=== PATIENT | male | born 1975 | race Two or more races ===

== ENCOUNTER 2016-08-10 09:45 | Inpatient (IN) | payer OTHER ==
[2016-08-10 10:54] VITALS: BMI 34.0
--- NOTE | 2016-08-10 12:49 | HP ---
CIWA Score - CIWA Score Nausea/Vomitin Muscle Tremors: 3 Anxiety: 3 Agitation: 3 Paroxysmal Sweats: 2 Orientation: 0-Oriented Tacttile Disturbances: 2-Mild Itch/Numbness/Burn Auditory Disturbances: 2-Mild Harshness/Frighten Visual Disturbances: 2-Mild Sensitivity Headache: 2-Mild CIWA-Ar Total Score: 22 Admission ROS BHS - HPI Chief Complaint: I NEED HELP TO STOP DRINKING ALCOHOL Allergies/Adverse Reactions: Allergies Allergy/AdvReac Type Severity Reaction Status Date / Time No Known Allergies Allergy Verified 08/10/16 10:28 History of Present Illness: THIS 41 YEARS OLD MALE WITH ALCOHOL DEPENDENCE,WITHDRAWAL SYMPTOM,MMTP 150 MGS/ DAY,LAST MEDICATED TODAY, SYNCOPE ALCOHOL RELATED BIPOLAR DISORDER NO SIGNIFICANT PERIOD OF SOBRIETY Exam Limitations: No Limitations - Ebola screening Have you traveled outside of the country in the last 21 days: No Have you had contact with anyone from an Ebola affected area: No Have you been sick,other than usual withdrawal symptoms: No - Review of Systems Constitutional: Chills, Diaphoresis, Loss of Appetite, Malaise, Night Sweats, Changes in sleep, Weakness EENT: reports: Nose Congestion Respiratory: reports: No Symptoms reported Cardiac: reports: No Symptoms Reported GI: reports: Diarrhea, Nausea, Vomiting, Abdominal cramping : reports: No Symptoms Reported Musculoskeletal: reports: Back Pain, Muscle Pain Integumentary: reports: Dryness Neuro: reports: Headache, Tremors Endocrine: reports: No Symptoms Reported Hematology: reports: No Symptoms Reported Psychiatric: reports: Judgement Intact, Mood/Affect Appropiate, Orientated x3, other (BIPOLAR DISODER) Patient History - Patient Medical History Hx Anemia: No Hx Asthma: No Hx Chronic Obstructive Pulmonary Disease (COPD): No Hx Cancer: Yes (non hogkins lymphoma/in recession) Hx Cardiac Disorders: No Hx Congestive Heart Failure: No Hx Hypertension: No Hx Hypercholesterolemia: No Hx Pacemaker: No HX Cerebrovascular Accident: No Hx Seizures: No Hx Dementia: No Hx Diabetes: No Hx Gastrointestinal Disorders: Yes (acid reflux) Hx Liver Disease: No Hx Genitourinary Disorders: No Hx Sexually Transmitted Disorders: No Hx Renal Disease (ESRD): No Hx Thyroid Disease: No Hx Human Immunodeficiency Virus (HIV): No (2016 NEGATIVE) Hx Hepatitis C: Yes (FOLLOW UP WITH PMD AT [place]) Hx Depression: Yes Hx Suicide Attempt: No Hx Bipolar Disorder: Yes Hx Schizophrenia: No Other Medical History: NO SUICIDAL,NO HOMICIDAL - Patient Surgical History Past Surgical History: Yes Hx Neurologic Surgery: No Hx Cataract Extraction: No Hx Cardiac Surgery: No Hx Lung Surgery: No Hx Breast Surgery: No Hx Breast Biopsy: No Hx Abdominal Surgery: No Hx Appendectomy: No Hx Cholecystectomy: No Hx Genitourinary Surgery: No Hx Section: No Hx Orthopedic Surgery: No Hx Hysterectomy: No Other Surgical History: rt neck lymph node bx. Anesthesia Reaction: No - PPD History Previous Implant?: Yes Documented Results: Negative w/proof Implanted On Prior [facility] Admission?: Yes Date: 05/09/16 Results: 0 mm PPD to be Administered?: No - Smoking Cessation Smoking history: Current every day smoker Have you smoked in the past 12 months: Yes Aproximately how many cigarettes per day: 20 Hx Chewing Tobacco Use: No Initiated information on smoking cessation: Yes 'Breaking Loose' booklet given: 08/10/16 - Substance & Tx. History Hx Alcohol Use: Yes Hx Substance Use: No Substance Use Type: Alcohol Hx Substance Use Treatment: Yes ([facility] 05/07/16 TO 05/11/16) - Substances Abused Alcohol-beer/vodka Route: Oral Frequency: Daily Amount used: 1 case/1/2 liter Age of first use: 10 Date of Last Use: 08/10/16 Family Disease History - Family Disease History Family Disease History: Diabetes: Mother (breast), CA: Mother, Other: Father ( murdered ) Admission Physical Exam S - Vital Signs Vital Signs: Vital Signs - 24 hr 08/10/16 10:39 Temperature 97 F L Pulse Rate 88 Respiratory 20 Rate Blood Pressure 106/73 - Physical General Appearance: Yes: Moderate Distress, Tremorous, Irritable, Sweating, Anxious HEENTM: Yes: Normal ENT Inspection, Normocephalic, Pharynx Normal, Nasal Congestion Respiratory: Yes: Lungs Clear, Normal Breath Sounds, No Respiratory Distress Neck: Yes: Within Normal Limits, Supple, Trachea in good position Breast: Yes: Within Normal Limits Cardiology: Yes: Within Normal Limits, Regular Rhythm, Regular Rate, S1, S2 Abdominal: Yes: Within Normal Limits, Normal Bowel Sounds, Non Tender, Flat, Soft Genitourinary: Yes: Within Normal Limits Back: Yes: Normal Inspection, Muscle Spasm Musculoskeletal: Yes: Back pain, Muscle Pain Extremities: Yes: Within Normal Limits, Normal Range of Motion, Tremors Neurological: Yes: Within Normal Limits, barker operator II-XII NML intact, Fully Oriented, Alert, Motor Strength 5/5 Integumentary: Yes: Dry Lymphatic: Yes: Within Normal Limits - Diagnostic (1) Nicotine dependence Current Visit: No Status: Acute Qualifiers: Nicotine product type: cigarettes Substance use status: uncomplicated Qualified Code(s): F17.210 - Nicotine dependence, cigarettes, uncomplicated (2) Alcohol dependence with uncomplicated withdrawal Current Visit: No Status: Chronic (3) Methadone maintenance therapy patient Current Visit: No Status: Chronic Comment: pending verification. last dose taken today with 160mg. (4) Bipolar disorder Current Visit: No Status: Suspected Comment: Historical diagnosis. (5) Hepatitis C Current Visit: Yes Status: Acute (6) Hodgkin lymphoma Current Visit: Yes Status: Acute Cleared for Admission [facility] - Detox or Rehab [facility] Level of Care: Medically Managed Detox Regimen/Protocol: Librium [facility] Breath Alcohol Content Breath Alcohol Content: 0.144 Urine Drug Screen - Results Drug Screen Negative: No Urine Drug Screen Results: BZO-Benzodiazepines, MTD-Methadone
[2016-08-10] MEDS ORDERED: MAGNESIUM CITRATE 300 ML BOTTLE PO PRN (13:02)
[2016-08-10] MEDS ORDERED: P-EPHED 60MG/TRIPROLIDI 2.5MG TABLET PO PRN (13:02)
[2016-08-10] MEDS ORDERED: IBUPROFEN 400 MG TABLET (FP) PO PRN (13:02)
[2016-08-10] MEDS ORDERED: hydrOXYzine PAMOATE 50 MG CAPSULE (FP) PO PRN (13:02)
[2016-08-10] MEDS ORDERED: chlordiazePOXIDE HCL 25 MG CAPSULE PO PRN (13:02)
[2016-08-10] MEDS ORDERED: guaiFENesin/D-METHORPHAN HB 10 ML UNIT-DOSE CUPS PO PRN (13:02)
[2016-08-10] MEDS ORDERED: MAGNESIUM HYDROX 2400MG/30ML ORAL SUSPENSION 30 ML CUP PO PRN (13:02)
[2016-08-10] MEDS ORDERED: MENTHOL/PHENOL 1 EACH UD MM PRN (13:02)
[2016-08-10] MEDS ORDERED: LOPERAMIDE HCL 2 MG CAPSULE PO PRN (13:02)
[2016-08-10] MEDS ORDERED: ACETAMINOPHEN 325 MG TABLET (FP) PO PRN (13:02)
[2016-08-10] MEDS ORDERED: chlordiazePOXIDE HCL 25 MG CAPSULE PO ONE (13:48)
[2016-08-10] MEDS: NICOTINE 21 MG/24 HOURS TOPICAL PATCH TD SCH (15:10)
[2016-08-10] MEDS: chlordiazePOXIDE HCL 25 MG CAPSULE PO SCH ×2 (17:28→22:30)
[2016-08-10] MEDS: MAG HYDROX/AL HYDROX/SIMETH 30 ML UNIT-DOSE CUP PO PRN (17:48)
[2016-08-10 20:12] LABS: URINE APPEARANCE CLEAR; URINE BILIRUBIN NEGATIVE (NEGATIVE); URINE BLOOD NEGATIVE (NEGATIVE); URINE COLOR STRAW; URINE GLUCOSE (UA) NEGATIVE (NEGATIVE); URINE KETONE NEGATIVE (NEGATIVE); URINE LEUK ESTERASE NEGATIVE (NEGATIVE); URINE NITRITE NEGATIVE (NEGATIVE); URINE PROTEIN NEGATIVE (NEGATIVE); URINE UROBILINOGEN NEGATIVE E.U./dl (0.2-1.0)
[2016-08-10] MEDS: THIAMINE HCL 100 MG TABLET (FP) PO SCH (22:29)
[2016-08-10] MEDS: diphenhydrAMINE HCL 50 MG CAPSULE PO PRN (22:30)
[2016-08-10] MEDS: RANITIDINE HCL 150 MG TABLET (FP) PO SCH (22:30)
[2016-08-11] MEDS ORDERED: METHADONE HCL 10 MG TABLET ONE (04:04)
[2016-08-11] MEDS ORDERED: METHADONE HCL 40 MG DISPERSABLE TABLET ONE (04:06)
[2016-08-11] MEDS: chlordiazePOXIDE HCL 25 MG CAPSULE PO SCH ×4 (05:23→22:47)
[2016-08-11] MEDS: METHADONE 120 MG, METHADONE 30 MG PO SCH (05:24)
[2016-08-11] MEDS ORDERED: METHADONE HCL 10 MG TABLET PO SCH (06:00)
[2016-08-11] MEDS: RANITIDINE HCL 150 MG TABLET (FP) PO SCH ×2 (10:35→22:46)
[2016-08-11] MEDS: PRENATAL VITAMINS W/ FOLIC ACID TABLET (FP) PO SCH (10:35)
[2016-08-11] MEDS: NICOTINE 21 MG/24 HOURS TOPICAL PATCH TD SCH (10:35)
[2016-08-11 10:42] LABS: MCH 33.7 pg (25.7-33.7); MCHC 32.7 g/dl (32.0-35.9); MEAN CELL VOLUME 102.9 fl (80-96); MEAN PLT VOLUME 9.1 fl (7.5-11.1); PLATELET COUNT 163 K/MM3 (134-434); RDW 16.7 % (11.9-15.9)
[2016-08-11 11:58] LABS: ALBUMIN 3.6 g/dl (3.4-5.0); ANION GAP 11 (8-16); CALCIUM 8.2 mg/dL (8.5-10.1); CO2 29 mmol/L (21-32); CREATININE 0.7 mg/dL (0.7-1.3); GLUCOSE,RANDOM 119 mg/dL (74-106); SGOT/AST 168 U/L (15-37); SGPT/ALT 76 U/L (12-78)
[2016-08-11 12:00] LABS: ALK PHOS 171 U/L (45-117); BILIRUBIN,TOTAL 0.9 mg/dL (0.2-1.0); TOT PROT 7.7 g/dl (6.4-8.2)
[2016-08-11] MEDS: CEPHALEXIN MONOHYDRATE 500 MG CAPSULE (UD) PO SCH ×3 (12:38→23:35)
--- NOTE | 2016-08-11 13:24 | CONSULT ---
[facility] Psychiatric Consult - Data Date of interview: 08/11/16 Admission source: [facility] Identifying data: Another admission to [facility] for this 41 y/o [place] male seeking detox treatment on for alcohol and heroin dependence.Patient is ,a father of one,homeless,unemployed and reportedly deprived of source of income (public assistance was discontinued, according to patient). Substance Abuse History: - Smoking Cessation. Smoking history: Current every day smoker. Have you smoked in the past 12 months: Yes. Aproximately how many cigarettes per day: 20. Hx Chewing Tobacco Use: No. Initiated information on smoking cessation: Yes. 'Breaking Loose' booklet given: 08/10/16. - Substance & Tx. History. Hx Alcohol Use: Yes. Hx Substance Use: No. Substance Use Type : Alcohol. Hx Substance Use Treatment: Yes ([facility] 05/07/16 TO 05/11/16). - Substances Abused. Alcohol-beer/vodka. Route: Oral. Frequency: Daily. Amount used: 1 case/1/2 liter. Age of first use: 10. Date of Last Use: . Confirmed by patient. Medical History: Significant for hepatitis C and a history of non-Hodgkin lymphoma (remission). Psychiatric History: History of psychiatric hospitalizations at [facility] and [facility].Diagnosed with "schizophrenia,bipolar disorder, anxiety disorder and depression".He is currently receiving outpatient psychiatric services at the [facility] in the [place].Prescribed : risperdal 1 mg po hs + gabapentin (dose not recalled) + lexapro (no recall of the dose) and clonazepam.Mr Nicole indicates that he has taken these medications before coming to [facility].No history of suicide attempts.Currently on methadone maintenance (150 mg/day). Physical/Sexual Abuse/Trauma History: Patient denies history of sexual abuse.Noted self-report of 20 years of incarceration for homicide (in [facility]). Mental Status Exam - Mental Status Exam Alert and Oriented to: Time, Place, Person Cognitive Function: Grossly Intact Patient Appearance: Well Groomed (obese) Mood: Nervous, Withdrawn, Anxious Affect: Mood Congruent Patient Behavior: Sedated (mildly), Fatigued, Cooperative Speech Pattern: Clear Voice Loudness: Normal Thought Process: Goal Oriented Thought Disorder: Not Present Hallucinations: Denies Suicidal Ideation: Denies Homicidal Ideation: Denies Insight/Judgement: Fair, Poor Sleep: Well Appetite: Good Muscle strength/Tone: Normal Gait/Station: Normal Psychiatric Findings - Problem List ([place] 1, 2,3) (1) Alcohol dependence with uncomplicated withdrawal Current Visit: Yes Status: Acute (2) Opioid dependence on agonist therapy Current Visit: Yes Status: Acute (3) Nicotine dependence Current Visit: Yes Status: Acute Qualifiers: Nicotine product type: cigarettes Substance use status: uncomplicated Qualified Code(s): F17.210 - Nicotine dependence, cigarettes, uncomplicated (4) Drug-induced mood disorder Current Visit: Yes Status: Chronic (5) Schizoaffective disorder Current Visit: Yes Status: Chronic Comment: More likely. (6) Hepatitis C Current Visit: Yes Status: Chronic (7) Hodgkin lymphoma Current Visit: Yes Status: Chronic - Initial Treatment Plan Initial Treatment Plan: Psychoeducation.Detoxification.Medications : lexapro 10 mg po daily + risperdal 1 mg po hs.Side effects/benefits discussed with the patient.He agrees with this careplan.Observation.
--- NOTE | 2016-08-11 16:14 | PN ---
[facility] CIWA - CIWA Score Nausea/Vomitin Muscle Tremors: 3 Anxiety: 4-Mod. Anxious/Guarded Agitation: 2 Paroxysmal Sweats: 3 Orientation: 0-Oriented Tacttile Disturbances: 3-Moderate Itch/Numb/Burn Auditory Disturbances: 2-Mild Harshness/Frighten Visual Disturbances: 0-None Headache: 0-None Present CIWA-Ar Total Score: 20 BHS Progress Note (SOAP) Subjective: Tremors, Nausea, Sweating, Interrupted Sleep. Pt. reporting Bilateral Leg Swelling and pain (upper and lower aspects) since yesterday. Objective: PT. A & O X 3, OBSERVED AMBULATING ON UNIT. INSPECTION REVEALS SWELLING OF LOWER LEGS, ANKLES AND FEET BILATERALLY. RED DISCOLORATION NOTED IN BILATERAL LOWER LEGS. PT. HAS FULL ROM OF BILATERAL LEGS , ANKLES, AND TOES. PT. ABLE TO AMBULATE UNASSISTED. PT. DENIES CHEST PAIN AND SOB. 08/11/16 16:11 Vital Signs Temperature 96.9 F L 08/11/16 13:31 Pulse Rate 97 H 08/11/16 13:31 Respiratory Rate 19 08/11/16 13:31 Blood Pressure 132/90 08/11/16 13:31 O2 Sat by Pulse Oximetry (%) Laboratory Last Values WBC 7.0 K/mm3 (4.0-10.0) 08/11/16 06:00 RBC 3.94 M/mm3 (4.00-5.60) L 08/11/16 06:00 Hgb 13.3 GM/dL (11.7-16.9) 08/11/16 06:00 Hct 40.6 % (35.4-49) 08/11/16 06:00 MCV 102.9 fl (80-96) H 08/11/16 06:00 MCHC 32.7 g/dl (32.0-35.9) 08/11/16 06:00 RDW 16.7 % (11.9-15.9) H D 08/11/16 06:00 Plt Count 163 K/MM3 (134-434) 08/11/16 06:00 MPV 9.1 fl (7.5-11.1) 08/11/16 06:00 Sodium 137 mmol/L (136-145) 08/11/16 06:00 Potassium 3.6 mmol/L (3.5-5.1) 08/11/16 06:00 Chloride 97 mmol/L (98-107) L 08/11/16 06:00 Carbon Dioxide 29 mmol/L (21-32) D 08/11/16 06:00 Anion Gap 11 (8-16) 08/11/16 06:00 BUN 6 mg/dL (7-18) L 08/11/16 06:00 Creatinine 0.7 mg/dL (0.7-1.3) 08/11/16 06:00 Creat Clearance w eGFR > 60 (>60) 08/11/16 06:00 Random Glucose 119 mg/dL (74-106) H 08/11/16 06:00 Calcium 8.2 mg/dL (8.5-10.1) L 08/11/16 06:00 Total Bilirubin 0.9 mg/dL (0.2-1.0) D 08/11/16 06:00 AST 168 U/L (15-37) H D 08/11/16 06:00 ALT 76 U/L (12-78) D 08/11/16 06:00 Alkaline Phosphatase 171 U/L (45-117) H D 08/11/16 06:00 Total Protein 7.7 g/dl (6.4-8.2) 08/11/16 06:00 Albumin 3.6 g/dl (3.4-5.0) 08/11/16 06:00 Urine Color Straw 08/10/16 19:36 Urine Appearance Clear 08/10/16 19:36 Urine pH 6.0 (5.0-8.0) 08/10/16 19:36 Ur Specific [place] 1.003 (1.001-1.035) 08/10/16 19:36 Urine Protein Negative (NEGATIVE) 08/10/16 19:36 Urine Glucose (UA) Negative (NEGATIVE) 08/10/16 19:36 Urine Ketones Negative (NEGATIVE) 08/10/16 19:36 Urine Blood Negative (NEGATIVE) 08/10/16 19:36 Urine Nitrite Negative (NEGATIVE) 08/10/16 19:36 Urine Bilirubin Negative (NEGATIVE) 08/10/16 19:36 Urine Urobilinogen Negative E.U./dl (0.2-1.0) 08/10/16 19:36 Ur Leukocyte Esterase Negative (NEGATIVE) 08/10/16 19:36 RPR Titer Nonreactive (NONREACTIVE) 08/11/16 06:00 LABS NOTED. 08/11/16 16:15 08/11/16 16:16 08/11/16 16:18 Assessment: 08/11/16 16:14 WITHDRAWAL SYMPTOMS. Plan: CONTINUE DETOX. KEFLEX, 500 MG Q6 HRS X 7 DAYS FOR POSSIBLE CELLULITIS. PRN IBUPROFEN FOR BILATERAL LEG PAIN. PT. ADVISED TO ELEVATE FEET AND LEGS AND TO AVOID AMBULATING MUCH POSSIBLE FOR TIME BEING. BGM ACBK TOMORROW FOR ELEVATED RANDOM GLUCOSE LEVEL ON ADMISSION. ADVISED PATIENT TO FOLLOW-UP WITH SOFT WORK CIGAR MACHINE OPERATOR / REHAB MEDICAL PROVIDER AFTER DISCHARGE FROM DETOX FOR GENERAL MEDICAL ASSESSMENT AND FOR ANY ABNORMAL ADMISSION LAB VALUES.
[2016-08-11] MEDS: THIAMINE HCL 100 MG TABLET (FP) PO SCH (22:46)
[2016-08-11] MEDS: risperiDONE 1 MG TABLET (FP) PO SCH (22:46)
[2016-08-11] MEDS: diphenhydrAMINE HCL 50 MG CAPSULE PO PRN (22:47)
[2016-08-12] MEDS ORDERED: METHADONE HCL 10 MG TABLET ONE (04:52)
[2016-08-12] MEDS ORDERED: METHADONE HCL 40 MG DISPERSABLE TABLET ONE (04:53)
[2016-08-12] MEDS: METHADONE 120 MG, METHADONE 30 MG PO SCH (05:22)
[2016-08-12] MEDS: chlordiazePOXIDE HCL 25 MG CAPSULE PO SCH ×2 (05:22→10:47)
[2016-08-12] MEDS: CEPHALEXIN MONOHYDRATE 500 MG CAPSULE (UD) PO SCH ×4 (05:22→23:14)
[2016-08-12] MEDS: ESCITALOPRAM OXALATE 10 MG TABLET (FP) PO SCH (10:47)
[2016-08-12] MEDS: PRENATAL VITAMINS W/ FOLIC ACID TABLET (FP) PO SCH (10:47)
[2016-08-12] MEDS: RANITIDINE HCL 150 MG TABLET (FP) PO SCH ×2 (10:47→22:17)
[2016-08-12] MEDS: NICOTINE 21 MG/24 HOURS TOPICAL PATCH TD SCH (10:48)
[2016-08-12] MEDS: MAG HYDROX/AL HYDROX/SIMETH 30 ML UNIT-DOSE CUP PO PRN (10:48)
--- NOTE | 2016-08-12 11:40 | EKG ---
Test Reason : Blood Pressure : / mmHG Vent. Rate : 087 BPM Atrial Rate : 087 BPM P-R Int : 158 ms QRS Dur : 100 ms QT Int : 394 ms P-R-T Axes : 024 000 022 degrees QTc Int : 474 ms NORMAL SINUS RHYTHM POSSIBLE INFERIOR INFARCT , AGE UNDETERMINED ABNORMAL ECG NO PREVIOUS ECGS AVAILABLE Confirmed by SVETA GARCIA MD ([id number]) on 08/12/2016 11:40:21 AM Referred By: Danny Baxter Confirmed By:SVETA GARCIA MD
--- NOTE | 2016-08-12 12:19 | PN ---
S CIWA - CIWA Score Nausea/Vomitin Muscle Tremors: 4-Moderate,w/Arms Extend Anxiety: 4-Mod. Anxious/Guarded Agitation: 3 Paroxysmal Sweats: No Perspiration Orientation: 0-Oriented Tacttile Disturbances: 1-Very Mild Itch/Numbness Auditory Disturbances: 0-None Visual Disturbances: 0-None Headache: 2-Mild CIWA-Ar Total Score: 17 BHS Progress Note (SOAP) Subjective: Anxious, sweating, tremor, chills, interrupted sleep Objective: 08/12/16 12:16 Last Vital Signs Temp Pulse Resp BP Pulse Ox 96.0 F L 78 16 130/85 08/12/16 12:07 08/12/16 12:07 08/12/16 12:07 08/12/16 12:07 Laboratory Tests 08/10/16 08/11/16 08/11/16 19:36 06:00 06:00 WBC 7.0 RBC 3.94 L Hgb 13.3 Hct 40.6 MCV 102.9 H MCHC 32.7 RDW 16.7 H D Plt Count 163 MPV 9.1 Sodium 137 Potassium 3.6 Chloride 97 L Carbon Dioxide 29 D Anion Gap 11 BUN 6 L Creatinine 0.7 Creat Clearance w eGFR > 60 POC Glucometer Random Glucose 119 H Calcium 8.2 L Total Bilirubin 0.9 D AST 168 H D ALT 76 D Alkaline Phosphatase 171 H D Total Protein 7.7 Albumin 3.6 Urine Color Straw Urine Appearance Clear Urine pH 6.0 Ur Specific [place] 1.003 Urine Protein Negative Urine Glucose (UA) Negative Urine Ketones Negative Urine Blood Negative Urine Nitrite Negative Urine Bilirubin Negative Urine Urobilinogen Negative Ur Leukocyte Esterase Negative RPR Titer 08/11/16 08/12/16 06:00 05:26 WBC RBC Hgb Hct MCV MCHC RDW Plt Count MPV Sodium Potassium Chloride Carbon Dioxide Anion Gap BUN Creatinine Creat Clearance w eGFR POC Glucometer 97 Random Glucose Calcium Total Bilirubin AST ALT Alkaline Phosphatase Total Protein Albumin Urine Color Urine Appearance Urine pH Ur Specific [place] Urine Protein Urine Glucose (UA) Urine Ketones Urine Blood Urine Nitrite Urine Bilirubin Urine Urobilinogen Ur Leukocyte Esterase RPR Titer Nonreactive Labs noted Cellulitis B/L LE L>R Assessment: 08/12/16 12:17 Withdrawal symptoms Cellulitis B/L LE L>R with B/L LE swelling Plan: Continue detox Cellulitis and swelling of B/L LE: continue keflex, encouraged to elevate legs when in bed and avoid long standing
[2016-08-12] MEDS ORDERED: PANTOPRAZOLE 40 MG TABLET (FP) PO ONE (13:15)
[2016-08-12] MEDS ORDERED: ONDANSETRON *ODT* 4 MG TABLET SL PRN (16:35)
[2016-08-12] MEDS: chlordiazePOXIDE 5 MG CAPSULE PO SCH ×2 (17:13→22:17)
[2016-08-12] MEDS: THIAMINE HCL 100 MG TABLET (FP) PO SCH (22:17)
[2016-08-12] MEDS: risperiDONE 1 MG TABLET (FP) PO SCH (22:17)
[2016-08-12] MEDS: diphenhydrAMINE HCL 50 MG CAPSULE PO PRN (23:15)
[2016-08-13] MEDS ORDERED: METHADONE HCL 10 MG TABLET ONE (04:58)
[2016-08-13] MEDS ORDERED: METHADONE HCL 40 MG DISPERSABLE TABLET ONE (04:59)
[2016-08-13] MEDS: chlordiazePOXIDE 5 MG CAPSULE PO SCH ×2 (05:34→10:34)
[2016-08-13] MEDS: METHADONE 120 MG, METHADONE 30 MG PO SCH (05:34)
[2016-08-13] MEDS: CEPHALEXIN MONOHYDRATE 500 MG CAPSULE (UD) PO SCH ×4 (05:35→23:29)
[2016-08-13 10:04] LABS: BASOPHIL 1.2 % (0-2.0); MCH 33.7 pg (25.7-33.7); MCHC 33.2 g/dl (32.0-35.9); MEAN CELL VOLUME 101.7 fl (80-96); MEAN PLT VOLUME 8.8 fl (7.5-11.1); PLATELET COUNT 129 K/MM3 (134-434); RDW 16.7 % (11.9-15.9); WHITE BLOOD COUNT 4.9 K/mm3 (4.0-10.0)
[2016-08-13 10:28] LABS: CALCIUM 9.1 mg/dL (8.5-10.1)
[2016-08-13 10:32] LABS: ALBUMIN 3.3 g/dl (3.4-5.0); ALK PHOS 142 U/L (45-117); ANION GAP 12 (8-16); BILIRUBIN,TOTAL 0.8 mg/dL (0.2-1.0); CO2 28 mmol/L (21-32); CREATININE 0.8 mg/dL (0.7-1.3); GLUCOSE,RANDOM 89 mg/dL (74-106); SGOT/AST 77 U/L (15-37); SGPT/ALT 47 U/L (12-78); TOT PROT 7.2 g/dl (6.4-8.2)
[2016-08-13] MEDS: RANITIDINE HCL 150 MG TABLET (FP) PO SCH ×2 (10:34→22:28)
[2016-08-13] MEDS: NICOTINE 21 MG/24 HOURS TOPICAL PATCH TD SCH (10:34)
[2016-08-13] MEDS: PRENATAL VITAMINS W/ FOLIC ACID TABLET (FP) PO SCH (10:34)
[2016-08-13] MEDS: ESCITALOPRAM OXALATE 10 MG TABLET (FP) PO SCH (10:34)
[2016-08-13 10:50] LABS: AMYLASE 81 U/L (25-115)
--- NOTE | 2016-08-13 10:53 | PN ---
BHS Progress Note (SOAP) Subjective: Sweating,interrupted sleep,restless Objective: 08/13/16 10:52 Vital Signs - 8 hr 08/13/16 08/13/16 08/13/16 03:30 06:28 09:56 Temperature 97.9 F 96.6 F L Pulse Rate 92 H 95 H Respiratory 18 18 20 Rate Blood Pressure 127/81 119/82 Laboratory Last Values WBC 4.9 K/mm3 (4.0-10.0) 08/13/16 07:40 RBC 4.08 M/mm3 (4.00-5.60) 08/13/16 07:40 Hgb 13.8 GM/dL (11.7-16.9) 08/13/16 07:40 Hct 41.6 % (35.4-49) 08/13/16 07:40 MCV 101.7 fl (80-96) H 08/13/16 07:40 MCHC 33.2 g/dl (32.0-35.9) 08/13/16 07:40 RDW 16.7 % (11.9-15.9) H 08/13/16 07:40 Plt Count 129 K/MM3 (134-434) L D 08/13/16 07:40 MPV 8.8 fl (7.5-11.1) 08/13/16 07:40 Neutrophils % 56.0 % (42.8-82.8) 08/13/16 07:40 Lymphocytes % 26.7 % (8-40) 08/13/16 07:40 Monocytes % 10.1 % (3.8-10.2) 08/13/16 07:40 Eosinophils % 6.0 % (0-4.5) H 08/13/16 07:40 Basophils % 1.2 % (0-2.0) 08/13/16 07:40 Sodium 139 mmol/L (136-145) 08/13/16 07:40 Potassium 4.1 mmol/L (3.5-5.1) 08/13/16 07:40 Chloride 99 mmol/L (98-107) 08/13/16 07:40 Carbon Dioxide 28 mmol/L (21-32) 08/13/16 07:40 Anion Gap 12 (8-16) 08/13/16 07:40 BUN 11 mg/dL (7-18) D 08/13/16 07:40 Creatinine 0.8 mg/dL (0.7-1.3) 08/13/16 07:40 Creat Clearance w eGFR > 60 (>60) 08/13/16 07:40 POC Glucometer 112 UNITS (()) 08/13/16 05:33 Random Glucose 89 mg/dL (74-106) D 08/13/16 07:40 Calcium 9.1 mg/dL (8.5-10.1) 08/13/16 07:40 Total Bilirubin 0.8 mg/dL (0.2-1.0) 08/13/16 07:40 AST 77 U/L (15-37) H D 08/13/16 07:40 ALT 47 U/L (12-78) D 08/13/16 07:40 Alkaline Phosphatase 142 U/L (45-117) H 08/13/16 07:40 Total Protein 7.2 g/dl (6.4-8.2) 08/13/16 07:40 Albumin 3.3 g/dl (3.4-5.0) L 08/13/16 07:40 Total Amylase Cancelled 08/13/16 08:00 Lipase 588 U/L (73-393) H 08/13/16 07:40 Urine Color Straw 08/10/16 19:36 Urine Appearance Clear 08/10/16 19:36 Urine pH 6.0 (5.0-8.0) 08/10/16 19:36 Ur Specific [place] 1.003 (1.001-1.035) 08/10/16 19:36 Urine Protein Negative (NEGATIVE) 08/10/16 19:36 Urine Glucose (UA) Negative (NEGATIVE) 08/10/16 19:36 Urine Ketones Negative (NEGATIVE) 08/10/16 19:36 Urine Blood Negative (NEGATIVE) 08/10/16 19:36 Urine Nitrite Negative (NEGATIVE) 08/10/16 19:36 Urine Bilirubin Negative (NEGATIVE) 08/10/16 19:36 Urine Urobilinogen Negative E.U./dl (0.2-1.0) 08/10/16 19:36 Ur Leukocyte Esterase Negative (NEGATIVE) 08/10/16 19:36 RPR Titer Nonreactive (NONREACTIVE) 08/11/16 06:00 labs noted Assessment: 08/13/16 10:52 Withdrawal sx. Plan: Continue detox
[2016-08-13] MEDS: PANTOPRAZOLE 40 MG TABLET (FP) PO SCH (15:54)
[2016-08-13] MEDS: chlordiazePOXIDE HCL 10 MG CAPSULE PO SCH ×2 (17:22→22:28)
[2016-08-13] MEDS: risperiDONE 1 MG TABLET (FP) PO SCH (22:28)
[2016-08-13] MEDS: THIAMINE HCL 100 MG TABLET (FP) PO SCH (22:28)
[2016-08-13] MEDS: diphenhydrAMINE HCL 50 MG CAPSULE PO PRN (22:59)
[2016-08-14] MEDS ORDERED: METHADONE HCL 40 MG DISPERSABLE TABLET ONE (03:58)
[2016-08-14] MEDS ORDERED: METHADONE HCL 10 MG TABLET ONE (03:58)
[2016-08-14] MEDS: CEPHALEXIN MONOHYDRATE 500 MG CAPSULE (UD) PO SCH (05:40)
[2016-08-14] MEDS: chlordiazePOXIDE HCL 10 MG CAPSULE PO SCH (05:40)
[2016-08-14] MEDS: METHADONE 120 MG, METHADONE 30 MG PO SCH (05:40)
[2016-08-14 06:22] VITALS: BP 133/81; PULSE 89; TEMP 98
[2016-08-14] MEDS: PRENATAL VITAMINS W/ FOLIC ACID TABLET (FP) PO SCH (09:12)
[2016-08-14] MEDS: RANITIDINE HCL 150 MG TABLET (FP) PO SCH (09:13)
[2016-08-14] MEDS: PANTOPRAZOLE 40 MG TABLET (FP) PO SCH (09:13)
[2016-08-14] MEDS: ESCITALOPRAM OXALATE 10 MG TABLET (FP) PO SCH (09:13)
[2016-08-14] MEDS: NICOTINE 21 MG/24 HOURS TOPICAL PATCH TD SCH (09:13)
--- NOTE | 2016-08-14 12:18 | DS ---
[facility] Detox Discharge Summary Admission Date: 08/10/16 Discharge Date: 08/14/16 - History Present History: Alcohol Dependence, MMTP Additional Comments: DETOX COMPLETED.ALERT O X 3. NAD. F/U WITH PMD FOR MEDICAL MANAGEMENT OF COMORBID CONDITIONS. Pertinent Past History: NON HODGKIN'S LYMPHOMA GERD OBESITY - Physical Exam Results Vital Signs: Vital Signs Temperature 98.0 F 08/14/16 06:22 Pulse Rate 89 08/14/16 06:22 Respiratory Rate 18 08/14/16 06:22 Blood Pressure 133/81 08/14/16 06:22 O2 Sat by Pulse Oximetry (%) Pertinent Admission Physical Exam Findings: WITHDRAWAL SX - Treatment Hospital Course: Detox Protocol Followed, Detoxed Safely, Responded well, Discharged Condition Good - Medication Discharge Medications: Ambulatory Orders Gabapentin [Neurontin -] 800 mg PO TID 05/07/16 Escitalopram Oxalate [Lexapro -] 10 mg PO DAILY #30 tablet 05/08/16 Risperidone [Risperdal] 1 mg PO HS #30 tablet 05/08/16 Ranitidine [Zantac -] 150 mg PO BID 08/10/16 Escitalopram Oxalate [Lexapro -] 10 mg PO DAILY #30 tablet 08/11/16 Risperidone [Risperdal] 1 mg PO HS #30 tablet 08/11/16 - Diagnosis (1) Alcohol dependence with uncomplicated withdrawal Status: Acute (2) Nicotine dependence Status: Acute Qualifiers: Nicotine product type: cigarettes Substance use status: in withdrawal Qualified Code(s): F17.213 - Nicotine dependence, cigarettes, with withdrawal (3) Hepatitis C Status: Chronic (4) Hodgkin lymphoma Status: Chronic (5) Methadone maintenance therapy patient Status: Chronic (6) Obesity (BMI 30.0-34.9) Status: Chronic (7) Drug-induced mood disorder Status: Chronic (8) Schizoaffective disorder Status: Chronic - AMA Did Patient Leave Against Medical Advice: No
== END 2016-08-14 09:29 | disposition home or self-care (01) | DRG 773 ==
LOC: YASAS 09:45 → Y3N 11:24
PROVIDERS: ADMIT Internal Medicine Addiction Medicine; ATTEND Internal Medicine Addiction Medicine
PROC: HZ2ZZZZ Detoxification Services for Substance Abuse Treatment (ICD-10-PCS; principal; 2016-08-14)
DX: F11.20 Opioid dependence, uncomplicated (principal); F10.230 Alcohol dependence with withdrawal, uncomplicated; F17.213 Nicotine dependence, cigarettes, with withdrawal; F19.24 Other psychoactive substance dependence with psychoactive substance-induced mood disorder; F31.9 Bipolar disorder, unspecified; F25.9 Schizoaffective disorder, unspecified; B18.2 Chronic viral hepatitis C; C81.90 Hodgkin lymphoma, unspecified, unspecified site; E66.09 Other obesity due to excess calories; Z68.30 Body mass index [BMI] 30.0-30.9, adult
CPT/HCPCS: 36415; 80053; 81003; 82150; 83690; 85025; 85027; 86593; 93005; 93010; J2794

== ENCOUNTER 2016-11-12 11:08 | Inpatient (IN) | payer OTHER ==
[2016-11-12 12:55] VITALS: BMI 34.9
--- NOTE | 2016-11-12 15:10 | HP ---
CIWA Score - CIWA Score Nausea/Vomitin Muscle Tremors: 2 Anxiety: 3 Agitation: 3 Paroxysmal Sweats: 3 Orientation: 0-Oriented Tacttile Disturbances: 1-Very Mild Itch/Numbness Auditory Disturbances: 0-None Visual Disturbances: 0-None Headache: 0-None Present CIWA-Ar Total Score: 15 Admission ROS BHS - HPI Chief Complaint: i need help to stop drinking alcohol Allergies/Adverse Reactions: Allergies Allergy/AdvReac Type Severity Reaction Status Date / Time No Known Allergies Allergy Verified 11/12/16 15:05 History of Present Illness: 41 y/o m pt with a h/o chronic alcoholism seeking detox. Exam Limitations: No Limitations - Ebola screening Have you traveled outside of the country in the last 21 days: No Have you had contact with anyone from an Ebola affected area: No Have you been sick,other than usual withdrawal symptoms: No Do you have a fever: No - Review of Systems Constitutional: Malaise EENT: reports: No Symptoms Reported Respiratory: reports: No Symptoms reported Cardiac: reports: No Symptoms Reported GI: reports: Indigestion : reports: Other (hesitancy) Musculoskeletal: reports: Joint Pain, Muscle Pain (left arm) Integumentary: reports: Pruritus, Rash (left shoulder) Endocrine: reports: No Symptoms Reported Hematology: reports: Swollen Glands Psychiatric: reports: Depressed Other Systems: Reviewed and Negative Patient History - Patient Medical History Hx Anemia: No Hx Asthma: No Hx Chronic Obstructive Pulmonary Disease (COPD): No Hx Cancer: Yes (2007-non hogkins lymphoma/in recession) Hx Cardiac Disorders: No Hx Congestive Heart Failure: No Hx Hypertension: No Hx Hypercholesterolemia: No Hx Pacemaker: No HX Cerebrovascular Accident: No Hx Seizures: No Hx Dementia: No Hx Diabetes: No Hx Gastrointestinal Disorders: Yes (acid reflux) Hx Liver Disease: No Hx Genitourinary Disorders: No Hx Sexually Transmitted Disorders: No Hx Renal Disease (ESRD): No Hx Thyroid Disease: No Hx Human Immunodeficiency Virus (HIV): No (2015 NEGATIVE) Hx Hepatitis C: Yes (FOLLOW UP WITH PMD AT [facility]) Hx Depression: Yes Hx Suicide Attempt: No Hx Bipolar Disorder: Yes Hx Schizophrenia: No - Patient Surgical History Past Surgical History: Yes Hx Neurologic Surgery: No Hx Cataract Extraction: No Hx Cardiac Surgery: No Hx Lung Surgery: No Hx Breast Surgery: No Hx Breast Biopsy: No Hx Abdominal Surgery: No Hx Appendectomy: No Hx Cholecystectomy: No Hx Genitourinary Surgery: No Hx Section: No Hx Orthopedic Surgery: No Hx Hysterectomy: No Other Surgical History: rt neck lymph node bx. Anesthesia Reaction: No - PPD History Date: 05/09/16 Results: 0 mm - Reproductive History Patient is a Female of Child Bearing Age (11 -55 yrs old): No - Smoking Cessation Smoking history: Current every day smoker Have you smoked in the past 12 months: Yes Aproximately how many cigarettes per day: 20 Cigars Per Day: 0 Hx Chewing Tobacco Use: No Initiated information on smoking cessation: Yes 'Breaking Loose' booklet given: 11/12/16 - Substance & Tx. History Hx Alcohol Use: Yes Hx Substance Use: No Substance Use Type: Alcohol Hx Substance Use Treatment: No - Substances Abused Alcohol Route: Oral Frequency: Daily Amount used: beer 24 cans /d Age of first use: 15 Date of Last Use: 11/12/16 Family Disease History - Family Disease History Family Disease History: Diabetes: Mother (breast), CA: Mother, Other: Father ( murdered ) Admission Physical Exam BHS - Vital Signs Vital Signs: Vital Signs - 24 hr 11/12/16 12:53 Temperature 96.8 F L Pulse Rate 104 H Respiratory 20 Rate Blood Pressure 137/86 41 y/o obese m pt who is intoxicated but responding appropriately, cooperating with exam . - Physical General Appearance: Yes: Disheveled, Alcohol on Breath, Obese, Sweating, Anxious HEENTM: Yes: EOMI, Hearing grossly Normal, Normocephalic, Normal Voice, VAISHALI Respiratory: Yes: Chest Non-Tender, Lungs Clear, Normal Breath Sounds, No Respiratory Distress Neck: Yes: Supple, Trachea in good position, Other (well healed rt neck scar) Breast: Yes: Within Normal Limits Cardiology: Yes: Regular Rhythm, Tachycardia Abdominal: Yes: Non Tender, Organomegaly, Increased Bowel Sounds, Protuberent, Other (distended abdominal veins) Genitourinary: Yes: Frequency Back: Yes: Decreased Range of Motion Musculoskeletal: Yes: Back pain, Muscle Pain Extremities: Yes: Within Normal Limits Neurological: Yes: clinical pharmacy manager II-XII NML intact, Fully Oriented, Alert, Motor Strength 5/5 Integumentary: Yes: Moist Lymphatic: Yes: Within Normal Limits - Diagnostic (1) Nicotine dependence Current Visit: Yes Status: Chronic Qualifiers: Nicotine product type: cigarettes Substance use status: uncomplicated Qualified Code(s): F17.210 - Nicotine dependence, cigarettes, uncomplicated (2) Hepatitis C Current Visit: Yes Status: Chronic (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 last dose taken today with 160mg. (4) Obesity (BMI 30.0-34.9) Current Visit: Yes Status: Chronic (5) Bipolar disorder Current Visit: Yes Status: Suspected Qualifiers: Current bipolar episode type: depressed Comment: Historical diagnosis. (6) Non-Hodgkin lymphoma Current Visit: Yes Status: Chronic Qualifiers: Lymphoma site: unspecified region (7) Alcoholism, chronic Current Visit: Yes Status: Chronic Cleared for Admission S - Detox or Rehab [facility] Level of Care: Medically Managed Detox Regimen/Protocol: Librium [facility] Breath Alcohol Content Breath Alcohol Content: 0.148 Urine Drug Screen - Results Drug Screen Negative: No Urine Drug Screen Results: BZO-Benzodiazepines, MTD-Methadone
[2016-11-12] MEDS ORDERED: IBUPROFEN 400 MG TABLET (FP) PO PRN (15:39)
[2016-11-12] MEDS ORDERED: chlordiazePOXIDE HCL 25 MG CAPSULE PO PRN (15:39)
[2016-11-12] MEDS ORDERED: MAGNESIUM HYDROX 2400MG/30ML ORAL SUSPENSION 30 ML CUP PO PRN (15:39)
[2016-11-12] MEDS ORDERED: MAGNESIUM CITRATE 300 ML BOTTLE PO PRN (15:39)
[2016-11-12] MEDS ORDERED: hydrOXYzine PAMOATE 25 MG CAPSULE (FP) PO PRN (15:39)
[2016-11-12] MEDS ORDERED: ACETAMINOPHEN 325 MG TABLET (FP) PO PRN (15:39)
[2016-11-12] MEDS ORDERED: guaiFENesin/D-METHORPHAN HB 10 ML UNIT-DOSE CUPS PO PRN (15:39)
[2016-11-12] MEDS ORDERED: diphenhydrAMINE HCL 50 MG CAPSULE PO PRN (15:39)
[2016-11-12] MEDS ORDERED: LOPERAMIDE HCL 2 MG CAPSULE PO PRN (15:39)
[2016-11-12] MEDS ORDERED: MAG HYDROX/AL HYDROX/SIMETH 30 ML UNIT-DOSE CUP PO PRN (15:39)
[2016-11-12] MEDS ORDERED: NICOTINE POLACRILEX 4 MG GUM BC PRN (15:39)
[2016-11-12] MEDS ORDERED: P-EPHED 60MG/TRIPROLIDI 2.5MG TABLET PO PRN (15:39)
[2016-11-12] MEDS ORDERED: MENTHOL/PHENOL 1 EACH UD MM PRN (15:39)
[2016-11-12] MEDS: chlordiazePOXIDE HCL 25 MG CAPSULE PO SCH ×2 (17:14→22:31)
[2016-11-12] MEDS: RANITIDINE HCL 150 MG TABLET (FP) PO SCH (22:31)
[2016-11-12] MEDS: THIAMINE HCL 100 MG TABLET (FP) PO SCH (22:31)
[2016-11-12 23:26] LABS: URINE APPEARANCE CLEAR; URINE BILIRUBIN NEGATIVE (NEGATIVE); URINE BLOOD NEGATIVE (NEGATIVE); URINE COLOR AMBER; URINE GLUCOSE (UA) NEGATIVE (NEGATIVE); URINE KETONE NEGATIVE (NEGATIVE); URINE LEUK ESTERASE NEGATIVE (NEGATIVE); URINE NITRITE NEGATIVE (NEGATIVE); URINE UROBILINOGEN 4.0 E.U/dl E.U./dl (0.2-1.0)
[2016-11-12 23:29] LABS: URINE PROTEIN 1+ (NEGATIVE)
[2016-11-12 23:32] LABS: URINE MUCUS RARE; URINE WBC 1 /hpf (3-5)
[2016-11-13] MEDS: chlordiazePOXIDE HCL 25 MG CAPSULE PO SCH ×4 (05:21→22:31)
[2016-11-13] MEDS ORDERED: METHADONE HCL 10 MG TABLET PO ONE (09:04)
[2016-11-13] MEDS ORDERED: METHADONE 120 MG, METHADONE 30 MG PO ONE (09:20)
[2016-11-13 09:52] LABS: MCH 33.7 pg (25.7-33.7); MCHC 33.7 g/dl (32.0-35.9); MEAN PLT VOLUME 10.3 fl (7.5-11.1); PLATELET COUNT 151 K/MM3 (134-434); RDW 17.8 % (11.9-15.9); WHITE BLOOD COUNT 7.1 K/mm3 (4.0-10.0)
[2016-11-13 10:25] LABS: ALBUMIN 3.2 g/dl (3.4-5.0); ALK PHOS 219 U/L (45-117); ANION GAP 13 (8-16); BILIRUBIN,TOTAL 1.4 mg/dL (0.2-1.0); CALCIUM 8.8 mg/dL (8.5-10.1); CO2 26 mmol/L (21-32); CREATININE 0.8 mg/dL (0.7-1.3); GLUCOSE,RANDOM 187 mg/dL (74-106); SGOT/AST 138 U/L (15-37); SGPT/ALT 74 U/L (12-78); TOT PROT 7.4 g/dl (6.4-8.2)
[2016-11-13] MEDS ORDERED: METHADONE HCL 10 MG TABLET ONE (10:39)
[2016-11-13] MEDS ORDERED: METHADONE HCL 40 MG DISPERSABLE TABLET ONE (10:39)
[2016-11-13] MEDS: PRENATAL VITAMINS W/ FOLIC ACID TABLET (FP) PO SCH (10:40)
[2016-11-13] MEDS: RANITIDINE HCL 150 MG TABLET (FP) PO SCH ×2 (10:40→22:31)
[2016-11-13] MEDS: NICOTINE 21 MG/24 HOURS TOPICAL PATCH TD SCH (10:41)
--- NOTE | 2016-11-13 10:41 | CONSULT ---
[facility] Psychiatric Consult - Data Date of interview: 11/13/16 Admission source: [facility] Identifying data: This is [address] helen[place] speaking male with no psychiatric hospitalization history, history of Bipolar disorder, Schizoaffective disorder as well, intoxciated with: Opiuoids, Alcohol and Nicotine Substance Abuse History: - Smoking Cessation. Smoking history: Current every day smoker. Have you smoked in the past 12 months: Yes. Aproximately how many cigarettes per day: 20. Cigars Per Day: 0. Hx Chewing Tobacco Use: No. Initiated information on smoking cessation: Yes. 'Breaking Loose' booklet given : 11/12/16. - Substance & Tx. History. Hx Alcohol Use: Yes. Hx Substance Use : No. Substance Use Type: Alcohol. Hx Substance Use Treatment: No. - Substances Abused. Alcohol. Route: Oral. Frequency: Daily. Amount used: beer 24 cans /d. Age of first use: 15. Date of Last Use: 11/12/16 Medical History: Hep C+, Non Hodgkin Lymphoma history, Obesity, MMTP 150mg per day Psychiatric History: Patient reports history of Bipolar disorder with unclear psychiatric hospitalization history, reports takijg prior to admiossion: Rispedal 1mg po qhs. Gabapentin 8oo po tid. As per computer patient has been on Lexapro 20mg poqd, patient refusing to restart Lexapro. Physical/Sexual Abuse/Trauma History: Denies Additional Comment: Rispedal 1mg po qhs. Gabapentin 8oo po tid Mental Status Exam - Mental Status Exam Alert and Oriented to: Person Cognitive Function: Fair Patient Appearance: Unkempt Mood: Sad Affect: Flat Patient Behavior: Sedated Speech Pattern: Delayed Voice Loudness: Mildly Soft/Quiet Thought Process: Circumstantial Thought Disorder: Being Controlled Hallucinations: Denies Suicidal Ideation: Denies Homicidal Ideation: Denies Insight/Judgement: Fair Sleep: Difficulty falling asleep Appetite: Weight gain Muscle strength/Tone: Mild Hypotonicity Gait/Station: Shuffling Additional Comments: Rispedal 1mg po qhs. Gabapentin 8oo po tid Psychiatric Findings - Problem List ([place] 1, 2,3) (1) Alcoholism, chronic Current Visit: Yes Status: Deleted (2) Methadone maintenance therapy patient Current Visit: Yes Status: Chronic Comment: pending verification. last dose taken today with 160mg. (3) Nicotine dependence Current Visit: Yes Status: Chronic Qualifiers: Nicotine product type: cigarettes Substance use status: uncomplicated Qualified Code(s): F17.210 - Nicotine dependence, cigarettes, uncomplicated (4) Bipolar disorder Current Visit: Yes Status: Suspected Qualifiers: Current bipolar episode type: depressed Comment: Historical diagnosis. (5) Drug-induced mood disorder Current Visit: No Status: Chronic (6) Schizoaffective disorder Current Visit: No Status: Chronic Comment: More likely. - Initial Treatment Plan Initial Treatment Plan: Rispedal 1mg po qhs. Gabapentin 8oo po tid
[2016-11-13] MEDS ORDERED: ONDANSETRON *ODT* 4 MG TABLET SL PRN (11:09)
--- NOTE | 2016-11-13 12:04 | PN ---
[facility] CIWA - CIWA Score Nausea/Vomitin-No Nausea/No Vomiting Muscle Tremors: 4-Moderate,w/Arms Extend Anxiety: 4-Mod. Anxious/Guarded Agitation: 4-Moderately Restless Paroxysmal Sweats: 1-Minimal Palms Moist Orientation: 0-Oriented Tacttile Disturbances: 3-Moderate Itch/Numb/Burn Auditory Disturbances: 0-None Visual Disturbances: 0-None Headache: 0-None Present CIWA-Ar Total Score: 16 S Progress Note (SOAP) Subjective: ANXIETY,IRRITABILITY,TREMORS,SWEATS,INTERMITTENT SLEEP Objective: 11/13/16 12:04 Vital Signs Temperature 96.4 F L 11/13/16 09:43 Pulse Rate 86 11/13/16 09:43 Respiratory Rate 18 11/13/16 09:43 Blood Pressure 138/95 11/13/16 09:43 O2 Sat by Pulse Oximetry (%) Laboratory Last Values WBC 7.1 K/mm3 (4.0-10.0) D 11/13/16 06:00 RBC 3.85 M/mm3 (4.00-5.60) L 11/13/16 06:00 Hgb 13.0 GM/dL (11.7-16.9) 11/13/16 06:00 Hct 38.6 % (35.4-49) 11/13/16 06:00 MCV 100.0 fl (80-96) H 11/13/16 06:00 MCHC 33.7 g/dl (32.0-35.9) 11/13/16 06:00 RDW 17.8 % (11.9-15.9) H 11/13/16 06:00 Plt Count 151 K/MM3 (134-434) 11/13/16 06:00 MPV 10.3 fl (7.5-11.1) D 11/13/16 06:00 Sodium 138 mmol/L (136-145) 11/13/16 06:00 Potassium 3.2 mmol/L (3.5-5.1) L D 11/13/16 06:00 Chloride 99 mmol/L (98-107) 11/13/16 06:00 Carbon Dioxide 26 mmol/L (21-32) 11/13/16 06:00 Anion Gap 13 (8-16) 11/13/16 06:00 BUN 6 mg/dL (7-18) L D 11/13/16 06:00 Creatinine 0.8 mg/dL (0.7-1.3) 11/13/16 06:00 Creat Clearance w eGFR > 60 (>60) 11/13/16 06:00 Random Glucose 187 mg/dL (74-106) H D 11/13/16 06:00 Calcium 8.8 mg/dL (8.5-10.1) 11/13/16 06:00 Total Bilirubin 1.4 mg/dL (0.2-1.0) H D 11/13/16 06:00 AST 138 U/L (15-37) H D 11/13/16 06:00 ALT 74 U/L (12-78) D 11/13/16 06:00 Alkaline Phosphatase 219 U/L (45-117) H D 11/13/16 06:00 Total Protein 7.4 g/dl (6.4-8.2) 11/13/16 06:00 Albumin 3.2 g/dl (3.4-5.0) L 11/13/16 06:00 Urine Color Elisa 11/12/16 23:05 Urine Appearance Clear 11/12/16 23:05 Urine pH 5.0 (5.0-8.0) 11/12/16 23:05 Ur Specific [place] 1.020 (1.005-1.025) 11/12/16 23:05 Urine Protein 1+ (NEGATIVE) H 11/12/16 23:05 Urine Glucose (UA) Negative (NEGATIVE) 11/12/16 23:05 Urine Ketones Negative (NEGATIVE) 11/12/16 23:05 Urine Blood Negative (NEGATIVE) 11/12/16 23:05 Urine Nitrite Negative (NEGATIVE) 11/12/16 23:05 Urine Bilirubin Negative (NEGATIVE) 11/12/16 23:05 Urine Urobilinogen 4.0 e.u/dl E.U./dl (0.2-1.0) 11/12/16 23:05 Ur Leukocyte Esterase Negative (NEGATIVE) 11/12/16 23:05 Urine RBC None /hpf (0-3) 11/12/16 23:05 Urine WBC 1 /hpf (3-5) 11/12/16 23:05 Ur Epithelial Cells Rare /hpf (FEW) 11/12/16 23:05 Urine Mucus Rare 11/12/16 23:05 Assessment: 11/13/16 12:04 WITHDRAWAL SX Plan: CONTINUE DETOX
[2016-11-13] MEDS: GABAPENTIN 400 MG CAPSULE (FP) PO SCH ×2 (13:58→22:31)
--- NOTE | 2016-11-13 14:47 | EKG ---
Test Reason : Blood Pressure : / mmHG Vent. Rate : 090 BPM Atrial Rate : 090 BPM P-R Int : 156 ms QRS Dur : 102 ms QT Int : 384 ms P-R-T Axes : 021 -04 008 degrees QTc Int : 469 ms NORMAL SINUS RHYTHM INFERIOR INFARCT (CITED ON OR BEFORE 10-AUG-2016) ABNORMAL ECG WHEN COMPARED WITH ECG OF 10-AUG-2016 14:19, NO SIGNIFICANT CHANGE WAS FOUND Confirmed by LESA WALKER MD ([id number]) on 11/13/2016 2:47:20 PM Referred By: Confirmed By:LESA WALKER MD
[2016-11-13] MEDS: THIAMINE HCL 100 MG TABLET (FP) PO SCH (22:31)
[2016-11-13] MEDS: risperiDONE 1 MG TABLET (FP) PO SCH (22:31)
[2016-11-14] MEDS ORDERED: METHADONE HCL 10 MG TABLET ONE (04:07)
[2016-11-14] MEDS ORDERED: METHADONE HCL 40 MG DISPERSABLE TABLET ONE (04:08)
[2016-11-14] MEDS: chlordiazePOXIDE HCL 25 MG CAPSULE PO SCH ×2 (05:39→10:38)
[2016-11-14] MEDS: GABAPENTIN 400 MG CAPSULE (FP) PO SCH ×3 (05:39→22:26)
[2016-11-14] MEDS: METHADONE 120 MG, METHADONE 30 MG PO SCH (05:41)
[2016-11-14] MEDS ORDERED: METHADONE HCL 10 MG TABLET PO SCH (06:00)
[2016-11-14] MEDS: PRENATAL VITAMINS W/ FOLIC ACID TABLET (FP) PO SCH (10:38)
[2016-11-14] MEDS: RANITIDINE HCL 150 MG TABLET (FP) PO SCH ×2 (10:38→22:25)
[2016-11-14] MEDS: NICOTINE 21 MG/24 HOURS TOPICAL PATCH TD SCH (10:38)
--- NOTE | 2016-11-14 11:32 | PN ---
[facility] CIWA - CIWA Score Nausea/Vomitin-No Nausea/No Vomiting Muscle Tremors: 5 Anxiety: 5 Agitation: 4-Moderately Restless Paroxysmal Sweats: 1-Minimal Palms Moist Orientation: 0-Oriented Tacttile Disturbances: 3-Moderate Itch/Numb/Burn Auditory Disturbances: 0-None Visual Disturbances: 0-None Headache: 0-None Present CIWA-Ar Total Score: 18 S Progress Note (SOAP) Subjective: ANXIETY,SWEATS TREMORS,IRRITABILITY/RESTTLESSNESS, INTERMITTENT SLEEP. Objective: 11/14/16 11:29 Vital Signs Temperature 98.6 F 11/14/16 09:34 Pulse Rate 95 H 11/14/16 09:34 Respiratory Rate 20 11/14/16 09:34 Blood Pressure 118/79 11/14/16 09:34 O2 Sat by Pulse Oximetry (%) Laboratory Last Values WBC 7.1 K/mm3 (4.0-10.0) D 11/13/16 06:00 RBC 3.85 M/mm3 (4.00-5.60) L 11/13/16 06:00 Hgb 13.0 GM/dL (11.7-16.9) 11/13/16 06:00 Hct 38.6 % (35.4-49) 11/13/16 06:00 MCV 100.0 fl (80-96) H 11/13/16 06:00 MCHC 33.7 g/dl (32.0-35.9) 11/13/16 06:00 RDW 17.8 % (11.9-15.9) H 11/13/16 06:00 Plt Count 151 K/MM3 (134-434) 11/13/16 06:00 MPV 10.3 fl (7.5-11.1) D 11/13/16 06:00 Sodium 138 mmol/L (136-145) 11/13/16 06:00 Potassium 3.2 mmol/L (3.5-5.1) L D 11/13/16 06:00 Chloride 99 mmol/L (98-107) 11/13/16 06:00 Carbon Dioxide 26 mmol/L (21-32) 11/13/16 06:00 Anion Gap 13 (8-16) 11/13/16 06:00 BUN 6 mg/dL (7-18) L D 11/13/16 06:00 Creatinine 0.8 mg/dL (0.7-1.3) 11/13/16 06:00 Creat Clearance w eGFR > 60 (>60) 11/13/16 06:00 Random Glucose 187 mg/dL (74-106) H D 11/13/16 06:00 Calcium 8.8 mg/dL (8.5-10.1) 11/13/16 06:00 Total Bilirubin 1.4 mg/dL (0.2-1.0) H D 11/13/16 06:00 AST 138 U/L (15-37) H D 11/13/16 06:00 ALT 74 U/L (12-78) D 11/13/16 06:00 Alkaline Phosphatase 219 U/L (45-117) H D 11/13/16 06:00 Total Protein 7.4 g/dl (6.4-8.2) 11/13/16 06:00 Albumin 3.2 g/dl (3.4-5.0) L 11/13/16 06:00 Urine Color Elisa 11/12/16 23:05 Urine Appearance Clear 11/12/16 23:05 Urine pH 5.0 (5.0-8.0) 11/12/16 23:05 Ur Specific [place] 1.020 (1.005-1.025) 11/12/16 23:05 Urine Protein 1+ (NEGATIVE) H 11/12/16 23:05 Urine Glucose (UA) Negative (NEGATIVE) 11/12/16 23:05 Urine Ketones Negative (NEGATIVE) 11/12/16 23:05 Urine Blood Negative (NEGATIVE) 11/12/16 23:05 Urine Nitrite Negative (NEGATIVE) 11/12/16 23:05 Urine Bilirubin Negative (NEGATIVE) 11/12/16 23:05 Urine Urobilinogen 4.0 e.u/dl E.U./dl (0.2-1.0) 11/12/16 23:05 Ur Leukocyte Esterase Negative (NEGATIVE) 11/12/16 23:05 Urine RBC None /hpf (0-3) 11/12/16 23:05 Urine WBC 1 /hpf (3-5) 11/12/16 23:05 Ur Epithelial Cells Rare /hpf (FEW) 11/12/16 23:05 Urine Mucus Rare 11/12/16 23:05 RPR Titer Nonreactive (NONREACTIVE) 11/13/16 06:00 LAB NOTED K+ = 3.2 Assessment: 11/14/16 11:30 WITHDRAWAL SX HYPOKALEMIA Plan: CONTINUE DETOX KDUR 20 MEQ PO BID
[2016-11-14] MEDS ORDERED: POTASSIUM CHLORIDE TABS 20 MEQ TABLET.ER (FP) PO ONE (11:43)
[2016-11-14] MEDS: chlordiazePOXIDE 5 MG CAPSULE PO SCH ×2 (16:44→22:26)
[2016-11-14] MEDS: THIAMINE HCL 100 MG TABLET (FP) PO SCH (22:25)
[2016-11-14] MEDS: risperiDONE 1 MG TABLET (FP) PO SCH (22:25)
[2016-11-14] MEDS: POTASSIUM CHLORIDE TABS 20 MEQ TABLET.ER (FP) PO SCH (22:26)
[2016-11-15] MEDS ORDERED: METHADONE HCL 40 MG DISPERSABLE TABLET ONE (04:17)
[2016-11-15] MEDS ORDERED: METHADONE HCL 10 MG TABLET ONE (04:17)
[2016-11-15] MEDS: GABAPENTIN 400 MG CAPSULE (FP) PO SCH ×3 (05:36→22:37)
[2016-11-15] MEDS: chlordiazePOXIDE 5 MG CAPSULE PO SCH ×2 (05:36→10:36)
[2016-11-15] MEDS: METHADONE 120 MG, METHADONE 30 MG PO SCH (05:37)
[2016-11-15] MEDS: POTASSIUM CHLORIDE TABS 20 MEQ TABLET.ER (FP) PO SCH ×2 (10:36→22:37)
[2016-11-15] MEDS: RANITIDINE HCL 150 MG TABLET (FP) PO SCH ×2 (10:36→22:37)
[2016-11-15] MEDS: PRENATAL VITAMINS W/ FOLIC ACID TABLET (FP) PO SCH (10:36)
[2016-11-15] MEDS: NICOTINE 21 MG/24 HOURS TOPICAL PATCH TD SCH (10:37)
--- NOTE | 2016-11-15 13:02 | PN ---
S Progress Note (SOAP) Subjective: ANXIETY,TREMORS,IRRITABILITY,INTERMITTENT SLEEP. Objective: 11/15/16 13:01 Vital Signs Temperature 96.4 F L 11/15/16 10:33 Pulse Rate 86 11/15/16 10:33 Respiratory Rate 18 11/15/16 10:33 Blood Pressure 114/84 11/15/16 10:33 O2 Sat by Pulse Oximetry (%) Laboratory Last Values WBC 7.1 K/mm3 (4.0-10.0) D 11/13/16 06:00 RBC 3.85 M/mm3 (4.00-5.60) L 11/13/16 06:00 Hgb 13.0 GM/dL (11.7-16.9) 11/13/16 06:00 Hct 38.6 % (35.4-49) 11/13/16 06:00 MCV 100.0 fl (80-96) H 11/13/16 06:00 MCHC 33.7 g/dl (32.0-35.9) 11/13/16 06:00 RDW 17.8 % (11.9-15.9) H 11/13/16 06:00 Plt Count 151 K/MM3 (134-434) 11/13/16 06:00 MPV 10.3 fl (7.5-11.1) D 11/13/16 06:00 Sodium 138 mmol/L (136-145) 11/13/16 06:00 Potassium 3.2 mmol/L (3.5-5.1) L D 11/13/16 06:00 Chloride 99 mmol/L (98-107) 11/13/16 06:00 Carbon Dioxide 26 mmol/L (21-32) 11/13/16 06:00 Anion Gap 13 (8-16) 11/13/16 06:00 BUN 6 mg/dL (7-18) L D 11/13/16 06:00 Creatinine 0.8 mg/dL (0.7-1.3) 11/13/16 06:00 Creat Clearance w eGFR > 60 (>60) 11/13/16 06:00 Random Glucose 187 mg/dL (74-106) H D 11/13/16 06:00 Calcium 8.8 mg/dL (8.5-10.1) 11/13/16 06:00 Total Bilirubin 1.4 mg/dL (0.2-1.0) H D 11/13/16 06:00 AST 138 U/L (15-37) H D 11/13/16 06:00 ALT 74 U/L (12-78) D 11/13/16 06:00 Alkaline Phosphatase 219 U/L (45-117) H D 11/13/16 06:00 Total Protein 7.4 g/dl (6.4-8.2) 11/13/16 06:00 Albumin 3.2 g/dl (3.4-5.0) L 11/13/16 06:00 Urine Color Elisa 11/12/16 23:05 Urine Appearance Clear 11/12/16 23:05 Urine pH 5.0 (5.0-8.0) 11/12/16 23:05 Ur Specific [place] 1.020 (1.005-1.025) 11/12/16 23:05 Urine Protein 1+ (NEGATIVE) H 11/12/16 23:05 Urine Glucose (UA) Negative (NEGATIVE) 11/12/16 23:05 Urine Ketones Negative (NEGATIVE) 11/12/16 23:05 Urine Blood Negative (NEGATIVE) 11/12/16 23:05 Urine Nitrite Negative (NEGATIVE) 11/12/16 23:05 Urine Bilirubin Negative (NEGATIVE) 11/12/16 23:05 Urine Urobilinogen 4.0 e.u/dl E.U./dl (0.2-1.0) 11/12/16 23:05 Ur Leukocyte Esterase Negative (NEGATIVE) 11/12/16 23:05 Urine RBC None /hpf (0-3) 11/12/16 23:05 Urine WBC 1 /hpf (3-5) 11/12/16 23:05 Ur Epithelial Cells Rare /hpf (FEW) 11/12/16 23:05 Urine Mucus Rare 11/12/16 23:05 RPR Titer Nonreactive (NONREACTIVE) 11/13/16 06:00 Assessment: 11/15/16 13:01 WITHDRAWAL SX Plan: CONTINUE DETOX ON KDUR DIRECTED
[2016-11-15] MEDS: chlordiazePOXIDE HCL 10 MG CAPSULE PO SCH ×2 (17:11→22:37)
[2016-11-15] MEDS: THIAMINE HCL 100 MG TABLET (FP) PO SCH (22:36)
[2016-11-15] MEDS: risperiDONE 1 MG TABLET (FP) PO SCH (22:37)
[2016-11-16] MEDS ORDERED: METHADONE HCL 40 MG DISPERSABLE TABLET ONE (04:09)
[2016-11-16] MEDS ORDERED: METHADONE HCL 10 MG TABLET ONE (04:09)
[2016-11-16] MEDS: chlordiazePOXIDE HCL 10 MG CAPSULE PO SCH (05:25)
[2016-11-16] MEDS: METHADONE 120 MG, METHADONE 30 MG PO SCH (05:25)
[2016-11-16] MEDS: GABAPENTIN 400 MG CAPSULE (FP) PO SCH (05:26)
[2016-11-16 06:46] VITALS: BP 127/77; PULSE 108; TEMP 98.4
--- NOTE | 2016-11-16 09:08 | DS ---
[facility] Detox Discharge Summary Admission Date: 11/12/16 Discharge Date: 11/16/16 - History Present History: Alcohol Dependence, MMTP Additional Comments: DETOX COMPLETED.ALERT O X 3. NAD. Pertinent Past History: NON-HODGKINS LYMPHOMA HEP C GERD - Physical Exam Results Vital Signs: Vital Signs Temperature 98.4 F 11/16/16 06:44 Pulse Rate 108 H 11/16/16 06:44 Respiratory Rate 16 11/16/16 06:44 Blood Pressure 127/77 11/16/16 06:44 O2 Sat by Pulse Oximetry (%) - Treatment Hospital Course: Detox Protocol Followed, Detoxed Safely, Responded well, Discharged Condition Good, Rehab Referral Accepted - Medication Discharge Medications: Ambulatory Orders Gabapentin [Neurontin -] 800 mg PO TID 05/07/16 Risperidone [Risperdal] 1 mg PO HS #30 tablet 05/08/16 Ranitidine [Zantac -] 150 mg PO BID 08/10/16 Escitalopram Oxalate [Lexapro -] 10 mg PO DAILY #30 tablet 08/11/16 Gabapentin [Neurontin -] 800 mg PO TID #90 cap 11/13/16 Risperidone [Risperdal -] 1 mg PO HS #30 tablet 11/13/16 - Diagnosis (1) Alcohol dependence with uncomplicated withdrawal Status: Acute (2) Methadone maintenance therapy patient Status: Chronic (3) Nicotine dependence Status: Chronic Qualifiers: Nicotine product type: cigarettes Substance use status: uncomplicated Qualified Code(s): F17.210 - Nicotine dependence, cigarettes, uncomplicated (4) Hypokalemia Status: Acute (5) Hepatitis C Status: Chronic (6) Non-Hodgkin lymphoma Status: Chronic Qualifiers: Lymphoma site: unspecified region (7) GERD (gastroesophageal reflux disease) Status: Chronic Qualifiers: Esophagitis presence: without esophagitis Qualified Code(s): K21.9 - Gastro-esophageal reflux disease without esophagitis (8) Obesity (BMI 30-39.9) Status: Chronic (9) Drug-induced mood disorder Status: Chronic (10) Schizoaffective disorder Status: Chronic (11) Bipolar disorder Status: Suspected Qualifiers: Current bipolar episode type: depressed - AMA Did Patient Leave Against Medical Advice: No
== END 2016-11-16 09:00 | disposition home or self-care (01) | DRG 773 ==
LOC: YASAS 11:08 → Y3N 16:11
PROVIDERS: ADMIT Internal Medicine; ATTEND Internal Medicine
PROC: HZ2ZZZZ Detoxification Services for Substance Abuse Treatment (ICD-10-PCS; principal; 2016-11-16)
DX: F11.20 Opioid dependence, uncomplicated (principal); F10.230 Alcohol dependence with withdrawal, uncomplicated; F17.210 Nicotine dependence, cigarettes, uncomplicated; F19.24 Other psychoactive substance dependence with psychoactive substance-induced mood disorder; F25.9 Schizoaffective disorder, unspecified; F31.9 Bipolar disorder, unspecified; C85.90 Non-Hodgkin lymphoma, unspecified, unspecified site; B18.2 Chronic viral hepatitis C; E66.09 Other obesity due to excess calories; Z68.35 Body mass index [BMI] 35.0-35.9, adult
CPT/HCPCS: 36415; 80053; 81003; 81015; 85027; 86593; 93005; 93010; J2794

== ENCOUNTER 2017-01-15 09:38 | Inpatient (IN) | payer OTHER ==
[2017-01-15 12:58] VITALS: BMI 30.4
[2017-01-15] MEDS ORDERED: MAGNESIUM HYDROX 2400MG/30ML ORAL SUSPENSION 30 ML CUP PO PRN (16:48)
[2017-01-15] MEDS ORDERED: diphenhydrAMINE HCL 50 MG CAPSULE PO PRN (16:48)
[2017-01-15] MEDS ORDERED: P-EPHED 60MG/TRIPROLIDI 2.5MG TABLET PO PRN (16:48)
[2017-01-15] MEDS ORDERED: chlordiazePOXIDE HCL 25 MG CAPSULE PO ONE (16:48)
[2017-01-15] MEDS ORDERED: guaiFENesin/D-METHORPHAN HB 10 ML UNIT-DOSE CUPS PO PRN (16:48)
[2017-01-15] MEDS ORDERED: MAG HYDROX/AL HYDROX/SIMETH 30 ML UNIT-DOSE CUP PO PRN (16:48)
[2017-01-15] MEDS ORDERED: MAGNESIUM CITRATE 300 ML BOTTLE PO PRN (16:48)
[2017-01-15] MEDS ORDERED: NICOTINE POLACRILEX 4 MG GUM BC PRN (16:48)
[2017-01-15] MEDS ORDERED: ACETAMINOPHEN 325 MG TABLET (FP) PO PRN (16:48)
[2017-01-15] MEDS ORDERED: MENTHOL/PHENOL 1 EACH UD MM PRN (16:48)
[2017-01-15] MEDS ORDERED: LOPERAMIDE HCL 2 MG CAPSULE PO PRN (16:48)
--- NOTE | 2017-01-15 16:48 | HP ---
CIWA Score - CIWA Score Nausea/Vomitin Muscle Tremors: 4-Moderate,w/Arms Extend Anxiety: 4-Mod. Anxious/Guarded Agitation: 4-Moderately Restless Paroxysmal Sweats: 1-Minimal Palms Moist Orientation: 1-Uncertain about Date Tacttile Disturbances: 0-None Auditory Disturbances: 0-None Visual Disturbances: 0-None Headache: 1-Very Mild CIWA-Ar Total Score: 17 Admission ROS BHS - HPI Chief Complaint: I DO NOT WANT TO DRINK ALCOHOL ANYMORE WITHDRAWAL SX Allergies/Adverse Reactions: Allergies Allergy/AdvReac Type Severity Reaction Status Date / Time No Known Allergies Allergy Verified 01/15/17 14:15 History of Present Illness: 41 YEARS OLD MALE WITH LONG HISTORY OF ALCOHOL KLONOPIN NICOTINE DEPENDENCE HAS GERD, CHRONIC BACK PAIN, NEUROPATHY, AND DEPRESSION IS ADMITTED TO DETOX Exam Limitations: No Limitations - Ebola screening Have you traveled outside of the country in the last 21 days: No Have you had contact with anyone from an Ebola affected area: No Have you been sick,other than usual withdrawal symptoms: No Do you have a fever: No - Review of Systems Constitutional: Changes in sleep, Weight Stable EENT: reports: No Symptoms Reported Respiratory: reports: No Symptoms reported Cardiac: reports: No Symptoms Reported GI: reports: Nausea, Poor Fluid Intake, Vomiting, Indigestion, Abdominal cramping : reports: No Symptoms Reported Musculoskeletal: reports: No Symptoms Reported Integumentary: reports: No Symptoms Reported Neuro: reports: Tremors Endocrine: reports: No Symptoms Reported Hematology: reports: No Symptoms Reported Psychiatric: reports: Judgement Intact, Anxious, Depressed Other Systems: Reviewed and Negative Patient History - Patient Medical History Hx Anemia: No Hx Asthma: No Hx Chronic Obstructive Pulmonary Disease (COPD): No Hx Cancer: Yes (2006-non hogkins lymphoma/in recession) Hx Cardiac Disorders: No Hx Congestive Heart Failure: No Hx Hypertension: No Hx Hypercholesterolemia: No Hx Pacemaker: No HX Cerebrovascular Accident: No Hx Seizures: No Hx Dementia: No Hx Diabetes: No Hx Gastrointestinal Disorders: No Hx Liver Disease: No Hx Genitourinary Disorders: No Hx Sexually Transmitted Disorders: No Hx Renal Disease (ESRD): No Hx Thyroid Disease: No Hx Human Immunodeficiency Virus (HIV): No (2016 NEGATIVE) Hx Hepatitis C: Yes (FOLLOW UP WITH PMD AT [facility]) Hx Depression: No Hx Suicide Attempt: No Hx Bipolar Disorder: Yes Hx Schizophrenia: No - Patient Surgical History Past Surgical History: Yes Hx Neurologic Surgery: No Hx Cataract Extraction: No Hx Cardiac Surgery: No Hx Lung Surgery: No Hx Breast Surgery: No Hx Breast Biopsy: No Hx Abdominal Surgery: No Hx Appendectomy: No Hx Cholecystectomy: No Hx Genitourinary Surgery: No Hx Orthopedic Surgery: No Other Surgical History: Rt neck lymph node bx. Anesthesia Reaction: No - PPD History Previous Implant?: Yes Documented Results: Negative w/proof Implanted On Prior [facility] Admission?: Yes Date: 05/09/16 Results: 0 mm PPD to be Administered?: No - Smoking Cessation Smoking history: Current every day smoker Have you smoked in the past 12 months: Yes Aproximately how many cigarettes per day: 20 Cigars Per Day: 0 Hx Chewing Tobacco Use: No Initiated information on smoking cessation: Yes 'Breaking Loose' booklet given: 01/15/17 - Substance & Tx. History Hx Alcohol Use: Yes Hx Substance Use: Yes Substance Use Type: Alcohol, Cocaine, Heroin, Tranquilizers Hx Substance Use Treatment: Yes (11/12-11/16/16 [facility] - Substances Abused Alcohol Route: Oral Frequency: Daily Amount used: 10 to 12 Beers 14 oz Age of first use: 8 Date of Last Use: 01/15/17 KLONOPIN Route: Oral Frequency: Daily Amount used: 4 MG Age of first use: 34 Date of Last Use: 01/15/17 Family Disease History - Family Disease History Family Disease History: Diabetes: Mother (breast), CA: Mother, Other: Father ( murdered ) Admission Physical Exam [facility] - Vital Signs Vital Signs: Vital Signs - 24 hr 01/15/17 12:55 Temperature 97.5 F L Pulse Rate 100 H Respiratory 18 Rate Blood Pressure 112/68 - Physical General Appearance: Yes: Appropriately Dressed, Moderate Distress, Alcohol on Breath, Obese, Tremorous, Irritable, Sweating, Anxious HEENTM: Yes: Hearing grossly Normal, Normal ENT Inspection, Normocephalic, Normal Voice Respiratory: Yes: Chest Non-Tender, Lungs Clear, Normal Breath Sounds, No Respiratory Distress, No Accessory Muscle Use Neck: Yes: Supple, Trachea in good position Breast: Yes: Breasts Symetrical Cardiology: Yes: Regular Rhythm, S1, S2, Tachycardia Abdominal: Yes: Non Tender, Soft, Increased Bowel Sounds, Other (VOMITING X 1) Genitourinary: Yes: Within Normal Limits Back: Yes: Normal Inspection Musculoskeletal: Yes: full range of Motion, Gait Steady, Back pain Extremities: Yes: Normal Range of Motion, Non-Tender, Tremors Neurological: Yes: Alert, Motor Strength 5/5, Normal Response, Depressed Affect Integumentary: Yes: Warm Lymphatic: Yes: Within Normal Limits - Diagnostic (1) Alcohol dependence with uncomplicated withdrawal Current Visit: Yes Status: Acute (2) GERD (gastroesophageal reflux disease) Current Visit: Yes Status: Chronic Qualifiers: Esophagitis presence: without esophagitis Qualified Code(s): K21.9 - Gastro-esophageal reflux disease without esophagitis (3) Hepatitis C Current Visit: Yes Status: Resolved Qualifiers: Viral hepatitis chronicity: unspecified Hepatic coma status: without hepatic coma Qualified Code(s): B19.20 - Unspecified viral hepatitis C without hepatic coma (4) Methadone maintenance therapy patient Current Visit: Yes Status: Chronic Comment: last dose taken today with 150mg VERIFIED (5) Nicotine dependence Current Visit: Yes Status: Acute Qualifiers: Nicotine product type: cigarettes Substance use status: in withdrawal Qualified Code(s): F17.213 - Nicotine dependence, cigarettes, with withdrawal (6) Non-Hodgkin lymphoma Current Visit: Yes Status: Inactive Qualifiers: Non-Hodgkin lymphoma type: unspecified type Lymphoma site: unspecified region Qualified Code(s): C85.90 - Non-Hodgkin lymphoma, unspecified, unspecified site (7) Obesity (BMI 30-39.9) Current Visit: Yes Status: Chronic (8) Bipolar II disorder Current Visit: Yes Status: Suspected Cleared for Admission [facility] - Detox or Rehab [facility] Level of Care: Medically Managed Detox Regimen/Protocol: Librium [facility] Breath Alcohol Content Breath Alcohol Content: 0.320 Urine Drug Screen - Results Drug Screen Negative: No Urine Drug Screen Results: DIPESH-Cocaine, BZO-Benzodiazepines, MTD-Methadone
[2017-01-15] MEDS: THIAMINE HCL 100 MG TABLET (FP) PO SCH (22:12)
[2017-01-15] MEDS: RANITIDINE HCL 150 MG TABLET (FP) PO SCH (22:12)
[2017-01-15] MEDS: GABAPENTIN 400 MG CAPSULE (FP) PO SCH (22:12)
[2017-01-15] MEDS: chlordiazePOXIDE HCL 25 MG CAPSULE PO SCH (22:13)
[2017-01-16] MEDS: METHADONE HCL 40 MG DISPERSABLE TABLET PO SCH (07:37)
[2017-01-16] MEDS: chlordiazePOXIDE HCL 25 MG CAPSULE PO SCH ×4 (07:38→22:04)
[2017-01-16] MEDS: GABAPENTIN 400 MG CAPSULE (FP) PO SCH ×3 (07:38→22:04)
[2017-01-16 08:16] LABS: HIV 1 & 2 AB NEGATIVE; HIV 1 AGp24 NEGATIVE
[2017-01-16] MEDS: chlordiazePOXIDE HCL 25 MG CAPSULE PO PRN ×2 (09:02→19:41)
--- NOTE | 2017-01-16 09:30 | PN ---
S CIWA - CIWA Score Nausea/Vomitin Muscle Tremors: 3 Anxiety: 4-Mod. Anxious/Guarded Agitation: 3 Paroxysmal Sweats: 1-Minimal Palms Moist Orientation: 0-Oriented Tacttile Disturbances: 3-Moderate Itch/Numb/Burn Auditory Disturbances: 0-None Visual Disturbances: 0-None Headache: 0-None Present CIWA-Ar Total Score: 19 BHS Progress Note (SOAP) Subjective: ANXIETY,TREMORS,NAUSEA/VOMITING, BODY ACHES Objective: 01/16/17 09:29 Vital Signs Temperature 99.3 F 01/16/17 09:23 Pulse Rate 86 01/16/17 09:23 Respiratory Rate 20 01/16/17 09:23 Blood Pressure 139/87 01/16/17 09:23 O2 Sat by Pulse Oximetry (%) Laboratory Last Values HIV 1&2 Antibody Screen Negative 01/15/17 14:00 HIV P24 Antigen Negative 01/15/17 14:00 OTHER LABS PENDING Assessment: 01/16/17 09:30 WITHDRAWAL SX Plan: CONTINUE DETOX
[2017-01-16] MEDS ORDERED: ONDANSETRON *ODT* 4 MG TABLET SL PRN (09:32)
[2017-01-16] MEDS: RANITIDINE HCL 150 MG TABLET (FP) PO SCH ×2 (10:08→22:04)
[2017-01-16] MEDS: NICOTINE 21 MG/24 HOURS TOPICAL PATCH TD SCH (10:08)
[2017-01-16] MEDS: PRENATAL VITAMINS W/ FOLIC ACID TABLET (FP) PO SCH (10:08)
[2017-01-16 10:16] LABS: MCH 33.5 pg (25.7-33.7); MCHC 33.3 g/dl (32.0-35.9); MEAN CELL VOLUME 100.6 fl (80-96); MEAN PLT VOLUME 9.8 fl (7.5-11.1); PLATELET COUNT 110 K/MM3 (134-434); WHITE BLOOD COUNT 8.5 K/mm3 (4.0-10.0)
[2017-01-16 10:46] LABS: ALK PHOS 208 U/L (45-117); ANION GAP 12 (8-16); BILIRUBIN,TOTAL 1.2 mg/dL (0.2-1.0); CALCIUM 7.9 mg/dL (8.5-10.1); CO2 29 mmol/L (21-32); GLUCOSE,RANDOM 93 mg/dL (74-106); SGOT/AST 346 U/L (15-37); SGPT/ALT 74 U/L (12-78); TOT PROT 7.8 g/dl (6.4-8.2)
--- NOTE | 2017-01-16 12:22 | CONSULT ---
[facility] Psychiatric Consult - Data Date of interview: 01/16/17 Admission source: [facility] Identifying data: Readmission to [facility] for this 41 y/o [place] male seeking detox treatment on for alcohol,benzodiazepine and heroin dependence.Patient is ,a father of one,domiciled,unemployed and supported by friends/relatives. Substance Abuse History: Confirmed by patient. Smoking Cessation. Smoking history: Current every day smoker. Have you smoked in the past 12 months: Yes. Aproximately how many cigarettes per day: 20. Cigars Per Day: 0. Hx Chewing Tobacco Use: No. Initiated information on smoking cessation: Yes. 'Breaking Loose' booklet given: 01/15/17. - Substance & Tx. History. Hx Alcohol Use: Yes. Hx Substance Use: Yes. Substance Use Type: Alcohol, Cocaine, Heroin, Tranquilizers. Hx Substance Use Treatment: Yes (11/12-11/16/16 [facility]). - Substances Abused. Alcohol. Route: Oral. Frequency: Daily. Amount used: 10 to 12 Beers 14 oz. Age of first use: 8. Date of Last Use: 01/15/17. KLONOPIN. Route: Oral. Frequency: Daily. Amount used: 4 MG. Age of first use : 34. Date of Last Use: 01/15/17 Medical History: Hepatitis C and a history of non-Hodgkin lymphoma (in remission ). Psychiatric History: Past psychiatric hospitalizations at [facility] and [facility]Diagnosed with Schizoaffective Disorder.Patient is currently followed at the [facility] OPD clinic in the [place].Mr Nicole reports maintenance on a regimen of gabapentin,klonopin and lexapro (doses not recalled).Prescribed : risperdal 2 mg po hs + gabapentin (dose not recalled) + lexapro (no recall of the dose) and clonazepam.No history of suicide attempts.Currently on methadone maintenance (150 mg/day). Physical/Sexual Abuse/Trauma History: Patient denies. Additional Comment: Urine Drug Screen Results: DIPESH-Cocaine, BZO-Benzodiazepines , MTD-Methadone.Noted. Mental Status Exam - Mental Status Exam Alert and Oriented to: Time, Place, Person Cognitive Function: Good Mood: Nervous, Anxious Affect: Mood Congruent Patient Behavior: Fatigued, Appropriate, Cooperative Speech Pattern: Clear Voice Loudness: Normal Thought Process: Goal Oriented Thought Disorder: Not Present Hallucinations: Denies Suicidal Ideation: Denies Homicidal Ideation: Denies Insight/Judgement: Poor Sleep: Poorly, Difficulty falling asleep Appetite: Good Muscle strength/Tone: Normal Gait/Station: Normal Psychiatric Findings - Problem List ([place] 1, 2,3) (1) Alcohol dependence with uncomplicated withdrawal Current Visit: Yes Status: Acute (2) Opioid dependence on agonist therapy Current Visit: Yes Status: Acute (3) Cocaine dependence Current Visit: Yes Status: Acute (4) Benzodiazepine dependence Current Visit: Yes Status: Acute (5) Nicotine dependence Current Visit: Yes Status: Acute Qualifiers: Nicotine product type: cigarettes Substance use status: in withdrawal Qualified Code(s): F17.213 - Nicotine dependence, cigarettes, with withdrawal (6) Drug-induced mood disorder Current Visit: Yes Status: Acute (7) Schizoaffective disorder Current Visit: Yes Status: Chronic Comment: More likely. (8) GERD (gastroesophageal reflux disease) Current Visit: Yes Status: Chronic Qualifiers: Esophagitis presence: without esophagitis Qualified Code(s): K21.9 - Gastro-esophageal reflux disease without esophagitis (9) Obesity (BMI 30-39.9) Current Visit: Yes Status: Chronic (10) Hepatitis C Current Visit: Yes Status: Resolved Qualifiers: Viral hepatitis chronicity: unspecified Hepatic coma status: without hepatic coma Qualified Code(s): B19.20 - Unspecified viral hepatitis C without hepatic coma (11) Non-Hodgkin lymphoma Current Visit: Yes Status: Inactive Qualifiers: Non-Hodgkin lymphoma type: unspecified type Lymphoma site: unspecified region Qualified Code(s): C85.90 - Non-Hodgkin lymphoma, unspecified, unspecified site (12) Insomnia Current Visit: Yes Status: Acute - Initial Treatment Plan Initial Treatment Plan: Psychoeducation.Detoxification.Medications : risperdal 1 mg po bid + lexapro 10 mg po daily.Side effects/benefits of both drugs are discussed with the patient.made aware of potential for abnormal involuntary movements,dyskinesias,neuroleptic malignant syndrome,cardiac adverse events, sexual impotence,galactorrhea and gynecomastia (risperdal),suicidal ideation ( lexapro).Mr Nicole is insisting on resuming these medications.Observation.
--- NOTE | 2017-01-16 12:57 | EKG ---
Test Reason : Blood Pressure : / mmHG Vent. Rate : 085 BPM Atrial Rate : 085 BPM P-R Int : 158 ms QRS Dur : 102 ms QT Int : 422 ms P-R-T Axes : 047 006 039 degrees QTc Int : 502 ms NORMAL SINUS RHYTHM PROLONGED QT ABNORMAL ECG WHEN COMPARED WITH ECG OF 12-NOV-2016 16:16, NO SIGNIFICANT CHANGE WAS FOUND Confirmed by CYNTHIA MACE MD ([id number]) on 01/16/2017 12:56:57 PM Referred By: Confirmed By:CYNTHIA MACE MD
[2017-01-16] MEDS ORDERED: CYCLOBENZAPRINE HCL 10 MG TABLET (FP) PO PRN (16:11)
[2017-01-16] MEDS: THIAMINE HCL 100 MG TABLET (FP) PO SCH (22:04)
[2017-01-16] MEDS: risperiDONE 1 MG TABLET (FP) PO SCH (22:04)
[2017-01-17] MEDS: METHADONE HCL 40 MG DISPERSABLE TABLET PO SCH (05:56)
[2017-01-17] MEDS: GABAPENTIN 400 MG CAPSULE (FP) PO SCH ×3 (05:56→21:52)
[2017-01-17] MEDS: chlordiazePOXIDE HCL 25 MG CAPSULE PO SCH ×3 (05:57→17:13)
[2017-01-17] MEDS: METHADONE 120 MG, METHADONE 30 MG PO SCH (09:15)
[2017-01-17] MEDS: PRENATAL VITAMINS W/ FOLIC ACID TABLET (FP) PO SCH (10:02)
[2017-01-17] MEDS: NICOTINE 21 MG/24 HOURS TOPICAL PATCH TD SCH (10:03)
[2017-01-17] MEDS: risperiDONE 1 MG TABLET (FP) PO SCH ×2 (10:03→21:52)
[2017-01-17] MEDS: RANITIDINE HCL 150 MG TABLET (FP) PO SCH ×2 (10:03→21:52)
[2017-01-17] MEDS: ESCITALOPRAM OXALATE 10 MG TABLET (FP) PO SCH (10:03)
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
[2017-01-17] MEDS: CYCLOBENZAPRINE HCL 10 MG TABLET (FP) PO SCH ×2 (14:15→21:52)
[2017-01-17] MEDS: THIAMINE HCL 100 MG TABLET (FP) PO SCH (21:58)
[2017-01-17] MEDS: chlordiazePOXIDE 5 MG CAPSULE PO SCH (22:49)
[2017-01-18] MEDS: chlordiazePOXIDE HCL 25 MG CAPSULE PO PRN (00:57)
[2017-01-18] MEDS ORDERED: METHADONE HCL 10 MG TABLET ONE (04:59)
[2017-01-18] MEDS ORDERED: METHADONE HCL 40 MG DISPERSABLE TABLET ONE (05:01)
[2017-01-18] MEDS: METHADONE 120 MG, METHADONE 30 MG PO SCH (06:14)
[2017-01-18] MEDS: CYCLOBENZAPRINE HCL 10 MG TABLET (FP) PO SCH (06:15)
[2017-01-18] MEDS: GABAPENTIN 400 MG CAPSULE (FP) PO SCH (06:15)
[2017-01-18] MEDS: chlordiazePOXIDE 5 MG CAPSULE PO SCH ×2 (06:15→10:17)
[2017-01-18] MEDS: risperiDONE 1 MG TABLET (FP) PO SCH (10:17)
[2017-01-18] MEDS: NICOTINE 21 MG/24 HOURS TOPICAL PATCH TD SCH (10:17)
[2017-01-18] MEDS: RANITIDINE HCL 150 MG TABLET (FP) PO SCH (10:17)
[2017-01-18] MEDS: PRENATAL VITAMINS W/ FOLIC ACID TABLET (FP) PO SCH (10:17)
[2017-01-18] MEDS: ESCITALOPRAM OXALATE 10 MG TABLET (FP) PO SCH (10:17)
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
[2017-01-18 10:33] VITALS: BP 94/64; PULSE 111; TEMP 97.2
[2017-01-18] MEDS ORDERED: chlordiazePOXIDE HCL 10 MG CAPSULE PO SCH (23:00)
== END 2017-01-18 10:15 | disposition left against medical advice (07) | DRG 770 ==
LOC: YASAS 09:38 → Y3N 15:01
PROVIDERS: ADMIT Internal Medicine; ATTEND Internal Medicine
DX: F11.20 Opioid dependence, uncomplicated (principal); F10.230 Alcohol dependence with withdrawal, uncomplicated; F17.213 Nicotine dependence, cigarettes, with withdrawal; C85.90 Non-Hodgkin lymphoma, unspecified, unspecified site; K21.9 Gastro-esophageal reflux disease without esophagitis
CPT/HCPCS: 36415; 80053; 85027; 86593; 87389; 93005; 93010; J2794